=== PATIENT | male | born 1940 | race Caucasian/White ===

== ENCOUNTER → 2018-08-25 | Outpatient (CLI) | payer OTHER | LOC: FIMAGING 16:21 | PROVIDERS: ATTEND Physician Assistant | DX: M54.16 Radiculopathy, lumbar region (principal); M48.061 Spinal stenosis, lumbar region without neurogenic claudication ==

== ENCOUNTER → 2018-12-29 | Outpatient (CLI) | payer OTHER | LOC: FIMAGING 18:25 | PROVIDERS: ATTEND Physical Medicine & Rehabilitation | DX: M16.12 Unilateral primary osteoarthritis, left hip (principal) ==

== ENCOUNTER → 2019-02-15 | Outpatient (CLI) | payer OTHER | LOC: FIMAGING 11:26 ==